=== PATIENT | female | born 1950 | race Caucasian/White ===

== ENCOUNTER → 2020-12-23 12:52 | Outpatient (CLI) | payer MEDICARE, SELFPAY ==
--- NOTE | 2020-12-23 13:00 | DI.MRI.S_ITS ---
PROCEDURE: MR LUMBAR SPINE WO/W CON INDICATIONS: lower back pains TECHNIQUE: Noncontrast sagittal T1 spin echo and T2 fast spin echo, sagittal STIR, axial T1 and T2 fast spin echo through the lumbar spine. In cases with scoliosis, additional coronal T2 fast spin echo may be performed. After the administration of contrast, sagittal and axial T1 spin echo with fat saturation through the lumbar spine. COMPARISON: None. FINDINGS: Image quality: Excellent. Alignment and curvature: There is normal bony alignment. Multilevel degenerative endplate sclerosis and spurring. There is large Schmorl's node involving the superior endplate of L4, with adjacent marrow edema and reactive enhancement. Additional small Schmorl's nodes are noted at the superior endplates of L3 and L5. Diffuse facet arthropathy. No acute vertebral body compression fractures. No suspicious marrow enhancement. Spinal cord: Conus medullaris terminates at the L2 level. Visualized spinal cord demonstrates normal signal, without suspicious enhancement. Paraspinous soft tissues: No paravertebral masses or abnormal enhancement. T12-L1: Normal appearance. L1-L2: Normal appearance. L2-L3: Minimal canal narrowing. Lateral recesses appear patent. Mild bilateral foraminal narrowing. L3-L4: Mild canal narrowing. Partial effacement of both lateral recesses with bilaterally symmetric appearance. Mild bilateral foraminal narrowing. L4-L5: Mild canal narrowing. Partial effacement of both lateral recesses with bilaterally symmetric appearance. Mild bilateral foraminal narrowing. L5-S1: Mild canal narrowing. Partial effacement of both lateral recesses with bilaterally symmetric appearance. Mild bilateral foraminal stenoses IMPRESSION: Large Schmorl's node involving the superior endplate of L4. Reactive marrow edema and enhancement suggests acute age. Diffuse lumbar spondylosis and facet arthropathy. No high-grade canal narrowing. Bilateral mild foraminal stenoses at L3-L4, L4-L5 and L5-S1. No suspicious enhancement Dictated by: Audi Bermudez M.D. on 12/23/2020 at 16:44 Approved by: Audi Bermudez M.D. on 12/23/2020 at 16:56
== END ==
PROVIDERS: Family Provider Family Medicine; PCP Family Medicine; Referring Provider Family Medicine; Visit Provider Family Medicine
DX: R93.7 Abnormal findings on diagnostic imaging of other parts of musculoskeletal system (principal); M47.26 Other spondylosis with radiculopathy, lumbar region; M85.88 Other specified disorders of bone density and structure, other site; Z78.0 Asymptomatic menopausal state; Z87.891 Personal history of nicotine dependence
CPT/HCPCS: 72158; 77080

== ENCOUNTER → 2021-11-04 14:33 | Outpatient (CLI) | payer MEDICARE, SELFPAY | PROVIDERS: Family Provider Family Medicine; PCP Physician Assistant; Visit Provider Physician Assistant Medical | DX: N39.0 Urinary tract infection, site not specified (principal) | CPT/HCPCS: 87077; 87086; 87186 ==

== ENCOUNTER → 2022-09-21 11:35 | Outpatient (CLI) | payer MEDICARE, SELFPAY ==
[2022-09-21 18:58] LABS: Add Manual Diff / Slide Review NO; Basophils Absolute Auto 0 /uL (0-100); Basophils Percent Auto 0.7 % (0-2); Eosinophils Absolute Auto 200 /uL (0-450); Hematocrit 38.9 % (36-46); Hemoglobin 13.3 g/dL (12.0-16.0); Lymphocytes Absolute Auto 900 /uL (1100-4500); Lymphocytes Percent Auto 17.4 % (25-40); Mean Corpuscular HGB Conc 34.2 % (30-36); Mean Corpuscular Hemoglobin 29.2 PG (26-34); Mean Corpuscular Volume 85.4 fL (80-100); Monocytes Absolute Auto 600 /uL (0-900); Neutrophils Absolute Auto 3400 /uL (1500-7000); Neutrophils Percent Auto 65.9 % (50-75); Platelet Count 211 X10^3/uL (150-400); Red Blood Cell Count 4.56 X10^6/uL (4.0-5.2); Red Cell Distribution Width 13.4 % (11.6-14.8); White Blood Cell Count 5.2 X10^3/uL (4.5-11.0)
[2022-09-21 19:01] LABS: Alanine Aminotransferase 21 IU/L (<35); Albumin 4.1 g/dL (3.5-5.0); Albumin Globulin Ratio 1.5 (1.0-2.8); Alkaline Phosphatase 77 U/L (38-126); Aspartate Aminotransferase 26 IU/L (14-36); Bilirubin Total 0.6 mg/dL (0.2-1.3); Blood Urea Nitrogen 11 mg/dL (7-17); Calcium 8.7 mg/dL (8.4-10.2); Carbon Dioxide 29 mmol/L (22-32); Chloride 95 mmol/L (98-107); Cholesterol 285 mg/dL (140-199); Estimated Glomerular Filt Rate > 60 mL/min (>60); Globulin 2.8 g/dL (1.7-4.1); Glucose 81 mg/dL (80-110); HDL Cholesterol 79 mg/dL (40-60); HEMOLYSIS < 15 (0-50); LDL Cholesterol Calculated 195 mg/dL (<100); Potassium 4.1 mmol/L (3.4-5.1); Sodium 130 mmol/L (137-145); Total Protein 6.9 g/dL (6.3-8.2); Triglycerides 56 mg/dL (35-150)
== END ==
PROVIDERS: Family Provider Family Medicine; PCP Physician Assistant; Visit Provider Family Medicine
DX: Z00.00 Encounter for general adult medical examination without abnormal findings (principal); M25.551 Pain in right hip; M25.552 Pain in left hip; Z12.11 Encounter for screening for malignant neoplasm of colon; Z13.1 Encounter for screening for diabetes mellitus; Z13.220 Encounter for screening for lipoid disorders; Z13.820 Encounter for screening for osteoporosis; Z71.85 Encounter for immunization safety counseling; Z78.0 Asymptomatic menopausal state
CPT/HCPCS: 80053; 80061; 85025

== ENCOUNTER → 2022-10-04 16:10 | Outpatient (CLI) | payer MEDICARE, SELFPAY ==
--- NOTE | 2022-10-04 16:15 | DI.CT.S_ITS ---
PROCEDURE: CT CHEST WO CON INDICATIONS: cough w/ hemoptysis, history international travel TECHNIQUE: Noncontrast 5 mm thick sections acquired from the pulmonary apices to the posterior costophrenic angles. 1 mm lung window, 5 mm thick coronal and sagittal and 7 mm axial MIP reformats were then acquired. For radiation dose reduction, the following was used: automated exposure control, adjustment of mA and/or kV according to patient size. COMPARISON: None. FINDINGS: Image quality: Excellent. Lungs and pleura: No acute air space opacities. Moderate linear, vertically oriented, subsegmental atelectatic changes in both lungs. No suspicious lung nodules. No pleural effusions or pneumothorax. Central and peripheral airways are patent and normal in caliber. No bronchial wall thickening or bronchiectasis. Mediastinum: Heart size is normal. No pericardial effusion. No mediastinal adenopathy by size criteria. Thoracic aorta and central pulmonary arteries are normal in size. Esophagus is normal in caliber. No hiatal hernia. Bones and chest wall: Mildly expansile, circumscribed lucent lesion with septations seen in the manubrium. No cortical loss. No other bony lesions. No vertebral body compression fractures. No axillary or supraclavicular adenopathy by size criteria. Thyroid gland is normal . Abdomen: 2 cm right lobe hepatic cyst near the dome. Visualized upper abdominal solid organs and bowel loops appear otherwise normal in the absence of contrast. IMPRESSION: 1. Probable subsegmental atelectatic changes versus scarring in the lower lungs. No other pulmonary parenchymal abnormalities. 2. Benign-appearing, slightly expansile cystic bone lesion in the manubrium. Dictated by: Elise Herrera M.D. on 10/05/2022 at 12:47 Approved by: Elise Herrera M.D. on 10/05/2022 at 12:55
== END ==
PROVIDERS: Family Provider Family Medicine; PCP Physician Assistant; Referring Provider Physician Assistant; Visit Provider Physician Assistant
DX: R04.2 Hemoptysis (principal)
CPT/HCPCS: 71250

== ENCOUNTER → 2023-09-05 10:51 | Outpatient (CLI) | payer MEDICARE, SELFPAY ==
--- NOTE | 2023-09-05 10:54 | DI.MRI.S_ITS ---
PROCEDURE: MR HEAD/BRAIN WO CON INDICATIONS: loss of coordination TECHNIQUE: Non-contrast axial T1 spin echo, axial T2 fast spin echo, sagittal and axial FLAIR, coronal T2 fast spin echo, axial gradient echo, axial diffusion and ADC through the brain. COMPARISON: None. FINDINGS: Image quality: Diagnostic CSF spaces: Ventricles appear symmetric in size and shape. Basal cisterns are patent. No extra-axial fluid collections. Brain: No intracranial bleeds or mass effects. There is cerebral volume loss for age. There are periventricular and deep white matter chronic small vessel ischemic changes. Brainstem appears normal. Diffusion-weighted images show no acute ischemic insults. No chronic ischemic insults. Normal intravascular flow voids are present. Skull and face: Calvarial bone marrow is normal in signal. Orbits are normal. Sinuses: Sinuses and mastoids are clear. IMPRESSION: Brain MRI within normal limits, without a cause of the patient's presenting history identified. To the limits of this noncontrast study, no findings masses or mass effect can be seen. Dictated by: Geovany Link M.D. on 09/05/2023 at 15:59 Approved by: Geovany Link M.D. on 09/05/2023 at 16:00
== END ==
PROVIDERS: Family Provider Family Medicine; PCP Physician Assistant; Referring Provider Family Medicine; Visit Provider Family Medicine
DX: R27.8 Other lack of coordination (principal)
CPT/HCPCS: 70551

== ENCOUNTER → 2024-02-15 14:07 | Outpatient (CLI) | payer MEDICARE, SELFPAY | PROVIDERS: Family Provider Family Medicine; PCP Physician Assistant; Visit Provider Family Medicine | DX: R30.0 Dysuria (principal); N39.0 Urinary tract infection, site not specified | CPT/HCPCS: 87086 ==

== ENCOUNTER → 2025-08-21 08:18 | Outpatient (CLI) | payer OTHER, SELFPAY ==
[2025-08-21 19:20] LABS: Add Manual Diff / Slide Review NO; Hematocrit 39.3 % (36-46); Hemoglobin 13.3 g/dL (12.0-16.0); Lymphocytes Absolute Auto 1000 /uL (1100-4500); Mean Corpuscular HGB Conc 33.9 % (30-36); Mean Corpuscular Hemoglobin 29.1 PG (26-34); Mean Corpuscular Volume 86.0 fL (80-100); Platelet Count 208 X10^3/uL (150-400)
[2025-08-21 19:32] LABS: Alanine Aminotransferase 15 IU/L (<35); Albumin 4.2 g/dL (3.5-5.0); Albumin Globulin Ratio 1.6 (1.0-2.8); Alkaline Phosphatase 58 U/L (38-126); Blood Urea Nitrogen 12 mg/dL (7-17); Calcium 9.1 mg/dL (8.4-10.2); Carbon Dioxide 30 mmol/L (22-32); Chloride 101 mmol/L (98-107); Cholesterol 301 mg/dL (140-199); Estimated Glomerular Filt Rate > 60 mL/min (>60); Globulin 2.7 g/dL (1.7-4.1); Glucose 82 mg/dL (70-99); HDL Cholesterol 101 mg/dL (40-60); HEMOLYSIS < 15 (0-50); Potassium 3.9 mmol/L (3.4-5.1); Sodium 135 mmol/L (137-145); Total Protein 6.9 g/dL (6.3-8.2); Triglycerides 62 mg/dL (35-150)
[2025-08-22 19:05] LABS: Hep C Virus Ab w/Reflex Quant NEGATIVE s/c (NEGATIVE)
== END ==
PROVIDERS: PCP Physician Assistant; Visit Provider Physician Assistant
DX: Z13.6 Encounter for screening for cardiovascular disorders (principal); Z11.59 Encounter for screening for other viral diseases; E78.00 Pure hypercholesterolemia, unspecified; Z13.0 Encounter for screening for diseases of the blood and blood-forming organs and certain disorders involving the immune mechanism
CPT/HCPCS: 80053; 80061; 85025; 86803